=== PATIENT | male | born 1960 | race Caucasian/White ===

== ENCOUNTER 2016-10-04 11:41 | Emergency (ER) | payer BC ==
[2016-10-04 12:04] VITALS: BP 151/88
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
== END 2016-10-04 12:17 | disposition home or self-care (01) ==
LOC: DL.ED 11:41
DX: H93.13 Tinnitus, bilateral (principal); F17.210 Nicotine dependence, cigarettes, uncomplicated
CPT/HCPCS: 99283